=== PATIENT | male | born 1955 | race Caucasian/White ===

== ENCOUNTER 2023-12-01 07:04 | Day surgery (SDC) | payer MEDICARE, MEDICAID ==
[2023-11-25 14:41] LABS: BASOPHILS % (AUTO) 0.5 % (0-1); EOSINOPHILS # (AUTO) 0.3 X10'3 (0-0.9); EOSINOPHILS % (AUTO) 3.1 % (0-6); HEMATOCRIT 45.5 % (42.0-52.0); HEMOGLOBIN 16.1 g/dl (14.0-17.9); LYMPHOCYTES % (AUTO) 24.5 % (21-51); MEAN CORPUSCULAR HEMOGLOBIN 33.4 PG (27.0-31.0); MEAN CORPUSCULAR HGB CONC 35.3 g/dL (33.0-36.5); MEAN CORPUSCULAR VOLUME 94.5 FL (78-98); MEAN PLATELET VOLUME 8.9 FL (7.4-10.4); MONOCYTES # (AUTO) 0.9 X10'3 (0-0.9); MONOCYTES % (AUTO) 11.5 % (2-12); NEUTROPHILS % (AUTO) 60.4 % (42-75); PLATELET COUNT 149 X10'3 (140-440); RED BLOOD COUNT 4.81 X10'6 (4.70-6.10); RED CELL DISTRIBUTION WIDTH 13.2 % (11.5-14.5); WHITE BLOOD COUNT 8.2 X10'3 (4.5-11.0)
[2023-11-25 14:52] LABS: ALANINE AMINOTRANSFERASE 35 U/L (12-78); ALBUMIN 3.6 G/DL (3.4-5.0); ALBUMIN/GLOBULIN RATIO 0.8 (1.1-1.5); ALKALINE PHOSPHATASE 94 IU/L (46-116); ANION GAP 5 (8-16); ASPARTATE AMINO TRANSFERASE 30 U/L (10-37); BILIRUBIN,TOTAL 0.7 MG/DL (0.1-1.0); BLOOD UREA NITROGEN 26 MG/DL (7-18); BUN/CREATININE RATIO 23.2 (10.0-20.0); CALCIUM 8.5 MG/DL (8.5-10.1); CHLORIDE 101 MMOL/L (99-107); CREATININE 1.12 MG/DL (0.60-1.10); POTASSIUM 3.7 MMOL/L (3.5-5.1); SODIUM 137 MMOL/L (135-145); TOTAL CARBON DIOXIDE 30.7 MMOL/L (24-32); eGFR 65 ML/MIN
[2023-11-25 14:55] LABS: GLUCOSE 101 MG/DL (70-104)
[2023-12-01] VITALS (15 sets, daily range): BP systolic 131–159; BP diastolic 79–109; PULSE 87–105; RESP 11–18; TEMP 98.1; O2SAT 93–100
[~2023-12-01] VITALS: Ht 182.9 cm; Wt 115.7 kg
[~2023-12-01 07:04] MED LIST: AMPH10TA2 PO; CLON0.1T2 PO; CLON1TAB12 PO; GABA-530 PO; MELO-102 PO; SIMV5TAB58 PO; TRAZ150T78 PO; VITAMIN B 6
[2023-12-01] MEDS: famotidine 20mg tablet PO ONE (07:57)
[2023-12-01] MEDS: ringers solution, lacted 1,000 ML IV SCH (07:59)
[2023-12-01] MEDS: cefazolin 2gm/D5W 100mL 100 ML IV ONE (07:59)
[2023-12-01] MEDS ORDERED: LIDOcaine 1% 30ml preserv. free vial ONE (08:53)
[2023-12-01] MEDS ORDERED: sevoflurane 250ml liquid IH ONE (09:02)
[2023-12-01] MEDS ORDERED: midazolam 1 mg/ML 2ml injection ONE (09:10)
[2023-12-01] MEDS ORDERED: fentaNYL /PF 50mcg/ml 5ml ampule ONE (09:11)
[2023-12-01] MEDS ORDERED: ondansetron/PF 4mg/2ml inj ONE (09:29)
[2023-12-01] MEDS ORDERED: propofol inj 20 ML IV ONE (09:29)
[2023-12-01] MEDS ORDERED: LIDOcaine 2% (20mg/ml) 5ml vial ONE (09:29)
[2023-12-01] MEDS ORDERED: dexamethasone sod phosphate 4mg/ml inj. ONE (09:29)
[2023-12-01] MEDS ORDERED: rocuronium 10mg/ml inj IV ONE (09:29)
[2023-12-01] MEDS: BUPIVACAINE liposomal/PF 13.3 MG/ML vial IM ONE (09:33)
[2023-12-01] MEDS: BUPIVAcaine 2.5mg/ml inj 50ml vial (contains preservative) ONE (09:34)
[2023-12-01] MEDS: BUPIVAcaine/PF 2.5mg/ml (0.25%) 10ml vial ONE (09:34)
[2023-12-01] MEDS ORDERED: glycopyrrolate 0.2mg/ml inj ONE (10:07)
[2023-12-01] MEDS ORDERED: neostigmine methylsulfate 1 MG/ML 10ml vial ONE (10:08)
[2023-12-01] MEDS ORDERED: acetaminophen 1,000mg/100ml IV 100 ML IV ONE (10:45)
[2023-12-01] MEDS ORDERED: ondansetron/PF 4mg/2ml inj IV PRN (10:45)
[2023-12-01] MEDS ORDERED: proCHLORperazine 10 MG/2 ml inj IV PRN (10:45)
[2023-12-01] MEDS ORDERED: hydrALAZINE 20mg/ml inj. IV PRN (10:45)
[2023-12-01] MEDS ORDERED: labetalol 20mg/4ml (5mg/ml) syringe IV PRN (10:45)
[2023-12-01] MEDS ORDERED: ringers solution, lacted 1,000 ML IV SCH (10:45)
[2023-12-01] MEDS ORDERED: meperidine/PF 25mg/ml syringe IV PRN (10:45)
[2023-12-01] MEDS ORDERED: morphine 4 MG/ML inj SYRINge IV PRN (10:45)
[2023-12-01] MEDS ORDERED: HYDROmorphone/PF 0.2 MG/ML SYRINGE IV PRN ×2 (10:45)
[2023-12-01] MEDS ORDERED: morphine 2 MG/ML inj. syringe IV PRN (10:45)
[2023-12-01] MEDS: oxyCODONE/APAP 5-325mg tablet PO PRN (12:14)
[2023-12-01] MEDS: ketorolac trometh. 30mg/ml inj. IV ONE (12:16)
== END 2023-12-01 12:38 | disposition home or self-care (01) ==
LOC: PAS 07:04
PROVIDERS: ATTEND Surgery
DX: K42.9 Umbilical hernia without obstruction or gangrene (principal); E66.9 Obesity, unspecified; G47.33 Obstructive sleep apnea (adult) (pediatric); F41.9 Anxiety disorder, unspecified; F43.10 Post-traumatic stress disorder, unspecified; Z87.891 Personal history of nicotine dependence; F98.8 Other specified behavioral and emotional disorders with onset usually occurring in childhood and adolescence; Z79.899 Other long term (current) drug therapy; Z68.34 Body mass index [BMI] 34.0-34.9, adult
CPT/HCPCS: 36415; 49593; 64488; 80053; 82948; 85025; C1781; C9290; J0690; J1100; J1885; J2250; J2405; J2704; J2710; J3010; J3490; J7030; J7120; Z7506; Z7508; Z7512; A4215; A4618